=== PATIENT | female | born 1950 | race Caucasian/White ===

== ENCOUNTER 2017-12-10 12:18 | Outpatient (CLI) | payer MEDICARE ==
--- NOTE | 2017-12-10 21:21 | RAD ---
CERVICAL SPINE: 12/10/2017 TECHNIQUE: AP, lateral, and open mouth views were provided. FINDINGS: No fracture or dislocation is seen. There is mild disk space narrowing at C5-C6. The other levels a re unremarkable. The C1 to dens distance is normal, and the soft tissues are normal in thickness. IMPRESSION: C5-C6 narrowing. MRI might be useful to determine any potential neural impingement. POS: HOME
== END 2017-12-10 12:19 | disposition home or self-care (01) ==
LOC: BURRAD 12:18
PROVIDERS: ATTEND Family Medicine
DX: M50.122 Cervical disc disorder at C5-C6 level with radiculopathy (principal)
CPT/HCPCS: 72040